=== PATIENT | male | born 1970 | race Caucasian/White ===

== ENCOUNTER 2018-11-09 21:42 | Inpatient (IN) | payer MEDICAID, OTHER ==
[~2018-11-09] VITALS: Ht 177.8 cm; Wt 99.7 kg
[~2018-11-09 21:42] MED LIST: BEN50 PO; CLOT30CR24 TOP; PRED20TA PO
[2018-11-09 22:16] VITALS: Ht 177.8 cm; Wt 99.7 kg
[2018-11-09] MEDS ORDERED: PANTOPRAZOLE IV 80 MG in SOD CHLORIDE 0.9% 100 ML IVPB STA (22:32)
[2018-11-09] MEDS ORDERED: PANTOPRAZOLE IV 80 MG in SOD CHLORIDE 0.9% 100 ML IV STA (22:32)
[2018-11-09] MEDS ORDERED: HYDR-3980 PO (22:57)
[2018-11-09] MEDS ORDERED: OMEP40CA6 PO (22:58)
[2018-11-09] MEDS ORDERED: NAPR-688 PO (22:58)
--- NOTE | 2018-11-09 23:28 | ERD ---
ER Documentation Chief Complaint Chief Complaint C/O LT SIDED CP RADIATING TO BACK X1 HR, STATES VOMITING BLOOD X1 HPI 47-year-old male history of heroin abuse, peptic ulcer disease who presents to the emergency room with epigastric abdominal pain and gross hematemesis over the past 12 hours. The patient describes 1-2 episodes of gross hematemesis with clots. He describes some possible darker stool but no nasim melena. He denies any fevers chills chest pain or shortness of breath. He does note some burning discomfort from the epigastrium into his chest however. ROS All systems reviewed and are negative except as per history of present illness. Medications Home Meds Reported Medications Naproxen* (Naproxen*) 500 Mg Tablet, 500 MG PO BID, TAB 11/09/18 Omeprazole* (Omeprazole*) 40 Mg Capsule.dr, 40 MG PO DAILY, #30 CAP 11/09/18 Hydrocodone/Acetaminophen ([place] 10-325 Tablet) 1 Each Tablet, 1 EACH PO NEEDED, TAB 11/09/18 Discontinued Scripts Diphenhydramine Hcl* (Benadryl*) 50 Mg Cap, 50 MG PO Q6H PRN for ITCHING/RASH, #30 CAP Prov:AURA HIGGINBOTHAM PA-C 03/18/16 Prednisone* (Prednisone*) 20 Mg Tab, 40 MG PO DAILY for 4 Days, TAB Prov:AURA HIGGINBOTHAM PA-C 03/18/16 Clotrimazole* (Clotrimazole* AF) 1% - 30 Gm Cream.gm., 1 APPLIC TOP BID for 7 Days, TUB Prov:AURA HIGGINBOTHAM PA-C 03/18/16 Allergies Allergies: Coded Allergies: No Known Allergy (Unverified , 11/09/18) PMhx/Soc Medical and Surgical Hx: pt denies Surgical Hx History of Surgery: No Anesthesia Reaction: No Hx Neurological Disorder: No Hx Respiratory Disorders: No Hx Cardiac Disorders: No Hx Psychiatric Problems: No Hx Miscellaneous Medical Probl: Yes (ULCER) Hx Alcohol Use: No Hx Substance Use: Yes (METH AND HEROIN) Hx Tobacco Use: Yes Smoking Status: Current every day smoker FmHx Family History: No diabetes Physical Exam Vitals Vital Signs Date Temp Pulse Resp B/P (MAP) Pulse Ox O2 O2 Flow FiO2 Time Delivery Rate 11/09/18 62 16 131/84 98 Room Air 23:32 (100) 11/09/18 97.7 81 18 141/77 98 22:16 (98) Physical Exam General: Well developed, well nourished, no acute distress Head: Normocephalic, atraumatic. Eyes: Pupils equally reactive, EOM intact ENT: Moist mucous membranes Neck: Supple, no lymphadenopathy Respiratory: Lungs clear bilaterally, no distress Cardiovascular: RRR, no murmurs, rubs, or gallops Abdominal: Soft, non-tender, non-distended, no peritoneal signs : Deferred MSK: No edema, no unilateral swelling, 5/5 strength Neurologic: Alert and oriented, moving all extremities, normal speech, no focal weakness, no cerebellar signs Skin: No rash Psych: Normal mood Result Diagram: 11/09/18224111/09/182241 Results 24 hrs Laboratory Tests Test 11/09/18 22:42 White Blood Count 12.0 10^3/ul Red Blood Count 5.16 10^6/ul Hemoglobin 13.6 g/dl Hematocrit 42.4 % Mean Corpuscular Volume 82.2 fl Mean Corpuscular Hemoglobin 26.4 pg Mean Corpuscular Hemoglobin Concent 32.1 g/dl Red Cell Distribution Width 13.3 % Platelet Count 357 10^3/UL Mean Platelet Volume 9.3 fl Immature Granulocytes % 0.600 % Neutrophils % 62.5 % Lymphocytes % 26.0 % Monocytes % 8.3 % Eosinophils % 2.2 % Basophils % 0.4 % Nucleated Red Blood Cells % 0.0 /100WBC Immature Granulocytes # 0.070 10^3/ul Neutrophils # 7.5 10^3/ul Lymphocytes # 3.1 10^3/ul Monocytes # 1.0 10^3/ul Eosinophils # 0.3 10^3/ul Basophils # 0.1 10^3/ul Nucleated Red Blood Cells # 0.0 10^3/ul Prothrombin Time 11.2 Sec Prothrombin Time Ratio 0.9 INR International Normalized Ratio 0.80 Activated Partial Thromboplast Time 30.9 Sec Sodium Level 140 mmol/L Potassium Level 4.0 mmol/L Chloride Level 96 mmol/L Carbon Dioxide Level 32 mmol/L Anion Gap 12 Blood Urea Nitrogen 20 mg/dl Creatinine 1.11 mg/dl Est Glomerular Filtrat Rate mL/min > 60 mL/min Glucose Level 102 mg/dl Calcium Level 9.5 mg/dl Total Bilirubin 0.1 mg/dl Direct Bilirubin 0.00 mg/dl Indirect Bilirubin 0.1 mg/dl Aspartate Amino Transf (AST/SGOT) 40 IU/L Alanine Aminotransferase (ALT/SGPT) 22 IU/L Alkaline Phosphatase 101 IU/L Troponin I < 0.012 ng/ml Total Protein 7.9 g/dl Albumin 4.4 g/dl Globulin 3.50 g/dl Albumin/Globulin Ratio 1.25 Current Medications Medications Dose Sig/Carmen Start Time Status Last (Trade) Ordered Route PRN Stop Time Admin Dose Reason Admin Pantoprazole 100 ml @ ONCE STAT 11/09/18 DC 11/09/18 80 mg/Sodium 400 mls/hr IVPB 22:32 23:27 Chloride 11/09/18 22:46 Pantoprazole 100 ml @ ONCE STAT 11/09/18 11/09/18 80 mg/Sodium 10 mls/hr IV 22:32 23:47 Chloride 11/10/18 08:31 Ondansetron 4 mg BRIDGE ORDER 11/10/18 HCl (Zofran PRN IV 01:00 Inj) NAUSEA/VOMITI 11/11/18 00:59 NG 650 mg ER BRIDGE 11/10/18 Acetaminophen PRN PO 01:00 (Tylenol .MILD PAIN 11/11/18 00:59 Tab) 1-3 OR TEMP Procedures/MDM EKG, MONITORS, & DIAGNOSTIC IMAGING: EKG: I reviewed and interpreted a 12-lead EKG. Rhythm: Normal sinus rhythm ST Changes: No contiguous ST segment elevations T waves: No contiguous T wave inversions Impression: No evidence of acute cardiac ischemia Chest x-ray: I reviewed and interpreted a 1 view of the chest Mediastinum: No enlargement Cardiac silhouette: No cardiomegaly Airspace: Clear lung giang bilaterally without evidence of pneumothorax Bones: No evidence of fracture LAB INTERPRETATION: I reviewed the laboratory testing and it shows no significant anemia MEDICAL DECISION MAKING: The patient has a known history of peptic ulcer disease with 2 episodes of gross hematemesis raising the concern for active upper GI hemorrhage. The patient has hemodynamic stability. I do not believe that emergent endoscopy is necessary but inpatient hospitalization for GI consultation and semi-urgent endoscopy would be appropriate. Patient is also requesting stool ova and parasite evaluation given that he states a history of parasitic infection. He denies any fevers or chills. He does describe some looser stools. These test have been ordered. No indication for empiric therapy. ER COURSE: * Large bore peripheral IV was inserted. The patient was given Protonix bolus and drip given known peptic ulcer disease. * No history of cirrhosis or alcohol abuse. * No indication for transfusion at this time CONSULTATION: None DISPOSITION PLAN: Inpatient hospital station for GI consultation in the setting of acute upper GI hemorrhage Accepting care team and consultations: I discussed the current laboratory data, diagnostic imaging and emergency care provided. Admitting team: Dr. Proctor Admitting team indication: Insurance directed Departure Diagnosis: Primary Impression: Upper GI bleed Condition: Stable MCKINLEY CASTILLO MD Nov 09, 2018 23:28
[2018-11-10] VITALS (10 sets, daily range): BP systolic 112–126; BP diastolic 61–71; PULSE 6–84; RESP 16–22
[2018-11-10] MEDS: SOD CHLORIDE 0.9% 1,000 ML IV SCH ×2 (00:57→13:27)
[2018-11-10] MEDS ORDERED: DOCUSATE SODIUM 100 MG CAP PO PRN (01:00)
[2018-11-10] MEDS ORDERED: ACETAMINOPHEN 325 MG TAB PO PRN ×2 (01:00)
[2018-11-10] MEDS ORDERED: ONDANSETRON 4 MG INJ IV PRN ×3 (01:00→13:30)
[2018-11-10] MEDS ORDERED: BISACODYL (EC) 5 MG TAB PO PRN (01:00)
[2018-11-10] MEDS ORDERED: morphine 2 MG INJ IV PRN (01:00)
[2018-11-10] MEDS ORDERED: NACL 0.9% 3 ML SYG IV SCH (01:00)
--- NOTE | 2018-11-10 06:44 | HP ---
Date/Time of Note Date/Time of Note DATE: 11/10/18 TIME: 06:39 Assessment/Plan VTE Prophylaxis SCD applied (from Nsg): Yes Pharmacological prophylaxis: NA/contraindicated Pharm contraindication: low risk/ambulating Lines/Catheters IV Catheter Type (from Nrsg): Saline Lock Assessment/Plan Hospital Course This is a 47-year-old male being admitted to the [facility] floor for: #1 hematemesis: Secondary possibly to underlying peptic ulcer disease. Hemoglobin is stable. Continue the patient on Protonix drip. CBC every 6 hours[address] Will consult GI Dr. Chino. #2 peptic ulcer disease: Patient has a history of peptic ulcer disease this could be the reason for his hematemesis. Again we will keep the patient on Protonix drip, consult GI check serial CBCs #3 history of illicit drug use: Monitor for signs of withdrawal as patient states he is self detox and ran off of heroin. #4 obesity: We will check hemoglobin A 1C, lipid panel, TSH #5 tobacco use: Nicotine patch #6 DVT GI prophylaxis: SCDs, Protonix drip Further treatment strategy will be implemented as per the clinical course. Result Diagram: 11/10/18 0451 11/10/18 0451 Results 24hrs Laboratory Tests Test 11/09/18 22:42 11/10/18 04:51 White Blood Count 12.0 #H 10.1 Red Blood Count 5.16 4.99 Hemoglobin 13.6 L 13.2 L Hematocrit 42.4 40.4 L Mean Corpuscular Volume 82.2 81.0 L Mean Corpuscular Hemoglobin 26.4 L 26.5 L Mean Corpuscular Hemoglobin Concent 32.1 32.7 Red Cell Distribution Width 13.3 13.6 Platelet Count 357 328 Mean Platelet Volume 9.3 9.5 Immature Granulocytes % 0.600 H 0.200 Neutrophils % 62.5 56.2 Lymphocytes % 26.0 31.7 Monocytes % 8.3 8.5 Eosinophils % 2.2 3.0 Basophils % 0.4 0.4 Nucleated Red Blood Cells % 0.0 0.0 Immature Granulocytes # 0.070 H 0.020 Neutrophils # 7.5 5.7 Lymphocytes # 3.1 H 3.2 H Monocytes # 1.0 H 0.9 Eosinophils # 0.3 0.3 Basophils # 0.1 0.0 Nucleated Red Blood Cells # 0.0 0.0 Prothrombin Time 11.2 L Prothrombin Time Ratio 0.9 INR International Normalized Ratio 0.80 Activated Partial Thromboplast Time 30.9 Sodium Level 140 141 Potassium Level 4.0 3.9 Chloride Level 96 L 101 Carbon Dioxide Level 32 H 30 Anion Gap 12 10 Blood Urea Nitrogen 20 17 Creatinine 1.11 0.97 Est Glomerular Filtrat Rate mL/min > 60 > 60 Glucose Level 102 101 Calcium Level 9.5 9.0 Total Bilirubin 0.1 L 0.3 Direct Bilirubin 0.00 0.00 Indirect Bilirubin 0.1 0.3 Aspartate Amino Transf (AST/SGOT) 40 29 Alanine Aminotransferase (ALT/SGPT) 22 25 Alkaline Phosphatase 101 84 Troponin I < 0.012 Total Protein 7.9 6.9 # Albumin 4.4 3.8 Globulin 3.50 H 3.10 Albumin/Globulin Ratio 1.25 1.22 Hemoglobin A1c 5.6 Magnesium Level 2.0 Triglycerides Level 153 H Cholesterol Level 137 LDL Cholesterol, Calculated 71 HDL Cholesterol 35 Cholesterol/HDL Ratio 3.9 Thyroid Stimulating Hormone (TSH) 2.200 HPI/ROS Admit Date/Time Admit Date/Time Hx of Present Illness Chief complaint: Hematemesis This is a 47-year-old male history of heroin abuse, peptic ulcer disease who presents to the emergency room with epigastric abdominal pain and gross hematemesis over the past 12 hours. The patient describes 1-2 episodes of gross hematemesis with clots. He describes some possible darker stool but no nasim melena. He denies any fevers chills chest pain or shortness of breath. He does note some burning discomfort from the epigastrium into his chest however. Patient reports that he is a heroin user and that he is currently on self detox for the last 3 days. Allergies: NKDA Medications: See Oct Const: As per HPI Eyes : No pain discharge or redness or change in visual acuity ENT: No pain, sore throat, congestion, congestion, dysphagia or discharge Respiratory: No shortness of breath, cough, sputum, wheezing, or pleuritic pain Cardiovascular: No chest pain, palpitation, PND, or edema GI : As per HPI Genitourinary: No dysuria, hematuria, flank pain , discharge or CVA tenderness Musculoskeletal: No joint pain, back pain, neck pain, restricted range of motion in neck or joints Skin: No rash, bruising or hives Neuro: No headache, dizziness, syncope, seizure, focal weakness Endocrine: No polyuria, polydipsia, temperature intolerance Psych: No hallucination, depression, anxiety or suicidal ideation PMH/Family/Social Past Medical History Peptic ulcer disease Medications Current Medications Pantoprazole 80 mg/Sodium Chloride 100 ml @ 10 mls/hr ONCE STAT IV Last administered on 11/09/18at 23:47; Admin Dose 10 MLS/HR; Start 11/09/18 at 22:32; Stop 11/10/18 at 08:31 Ondansetron HCl (Zofran Inj) 4 mg BRIDGE ORDER PRN IV NAUSEA/VOMITING; Start 11/10/18 at 01:00; Stop 11/11/18 at 00:59 Acetaminophen (Tylenol Tab) 650 mg ER BRIDGE PRN PO .MILD PAIN 1-3 OR TEMP; Start 11/10/18 at 01:00; Stop 11/11/18 at 00:59 Sodium Chloride 1,000 ml @ 80 mls/hr [id number] IV Last administered on 11/10/18at 00:57; Admin Dose 80 MLS/HR; Start 11/10/18 at 00:57 IV Flush (NS 3 ml) 3 ml PER PROTOCOL IV ; Start 11/10/18 at 01:00 Ondansetron HCl (Zofran Inj) 4 mg Q6H PRN IV NAUSEA/VOMITING; Start 11/10/18 at 01:00 Acetaminophen (Tylenol Tab) 650 mg Q6H PRN PO .PAIN 1-3 OR TEMP; Start 11/10/18 at 01:00 Morphine Sulfate (morphine) 2 mg Q4H PRN IV .SEVERE PAIN 7-10; Start 11/10/18 at 01:00 Docusate Sodium (Colace) 100 mg Q12H PRN PO .CONSTIPATION; Start 11/10/18 at 01:00 Bisacodyl (Dulcolax) 5 mg DAILY PRN PO .CONSTIPATION; Start 11/10/18 at 01:00 Pantoprazole 80 mg/Sodium Chloride 100 ml @ 10 mls/hr Q10H IV ; Start 11/10/18 at 08:32 Coded Allergies: No Known Allergy (Unverified , 11/09/18) Past Surgical History Past Surgical Hx: no surgical history Family History Significant Family History: no pertinent family hx Social History Smoking Status: Current every day smoker Drug Use: other (Heroin use) Exam/Review of Systems Vital Signs Vitals Vital Signs Date Temp Pulse Resp B/P (MAP) Pulse Ox O2 O2 Flow FiO2 Time Delivery Rate 11/10/18 56 16 125/72 99 Room Air 06:30 (89) 11/09/18 97.7 22:16 Exam Exam General: Pleasant male currently lying in bed in no acute distress HEENT: Atraumatic, normocephalic. The pupils are equal, round and reactive. Ext raocular motor are intact Neck: Supple with full range of motion. No rigidity or meningismus Chest: Nontender Lungs: Clear to auscultation bilaterally no crackles rales or wheezing Heart: Normal S1-S2, Regular rhythm and rate. No murmur, S3, or S4 Abdomen: Soft , nontender, nondistended , bowel sounds are present. No guarding no rebound tenderness , No masses or organomegaly. No costovertebral temporal angle mass Extremities: Normal to inspection, no edema no cyanosis Skin: Multiple tattoos Neurologic: Normal mental status, speech normal, cranial nerves II through XII are intact, motor and sensory are intact, SHIMA DICKINSON Nov 10, 2018 06:44
[2018-11-10] MEDS ORDERED: NICOTINE (21 MG/24 HR) PATCH TRANSDERM ONE (07:00)
[2018-11-10] MEDS ORDERED: PANTOPRAZOLE IV 80 MG in SOD CHLORIDE 0.9% 100 ML IV SCH (08:32)
--- NOTE | 2018-11-10 13:08 | PREAC ---
Date/Time of Note Date/Time of Note DATE: 11/10/18 TIME: 13:06 Anesthesia Eval and Record Evaluation Time Pre-Procedure Interview DATE: 11/10/18 TIME: 13:06 Age 47 Sex male NPO: 8 hrs Preoperative diagnosis upper GI bleeding Planned procedure EGD Past Medical History Past Medical History: Includes Pulm: Smoking Hx, Other (on PATCH) GI: Other (peptic ulcer) Recreational drugs: Heroin Surgery & Anesthesia Issues No known issue Meds Anticoagulation: No Beta Lawrence within 24 hr: No Reason Beta Lawrence not given: Pt. not on B-Lawrence Reported Medications Naproxen* (Naproxen*) 500 Mg Tablet, 500 MG PO BID, TAB 11/09/18 Omeprazole* (Omeprazole*) 40 Mg Capsule.dr, 40 MG PO DAILY, #30 CAP 11/09/18 Hydrocodone/Acetaminophen ([place] 10-325 Tablet) 1 Each Tablet, 1 EACH PO NEEDED, TAB 11/09/18 Discontinued Scripts Diphenhydramine Hcl* (Benadryl*) 50 Mg Cap, 50 MG PO Q6H PRN for ITCHING/RASH, #30 CAP Prov:AURA HIGGINBOTHAM PA-C 03/18/16 Prednisone* (Prednisone*) 20 Mg Tab, 40 MG PO DAILY for 4 Days, TAB Prov:AURA HIGGINBOTHAM PA-C 03/18/16 Clotrimazole* (Clotrimazole* AF) 1% - 30 Gm Cream.gm., 1 APPLIC TOP BID for 7 Days, TUB Prov:AURA HIGGINBOTHAM PA-C 03/18/16 Current Medications Sodium Chloride 1,000 ml @ 80 mls/hr [id number] IV Last administered on 11/10/18at 00:57; Admin Dose 80 MLS/HR; Start 11/10/18 at 00:57 IV Flush (NS 3 ml) 3 ml PER PROTOCOL IV ; Start 11/10/18 at 01:00 Ondansetron HCl (Zofran Inj) 4 mg Q6H PRN IV NAUSEA/VOMITING; Start 11/10/18 at 01:00 Acetaminophen (Tylenol Tab) 650 mg Q6H PRN PO .PAIN 1-3 OR TEMP; Start 11/10/18 at 01:00 Morphine Sulfate (morphine) 2 mg Q4H PRN IV .SEVERE PAIN 7-10 Last administered on 11/10/18at 09:09; Admin Dose 2 MG; Start 11/10/18 at 01:00 Docusate Sodium (Colace) 100 mg Q12H PRN PO .CONSTIPATION; Start 11/10/18 at 01:00 Bisacodyl (Dulcolax) 5 mg DAILY PRN PO .CONSTIPATION; Start 11/10/18 at 01:00 Pantoprazole 80 mg/Sodium Chloride 100 ml @ 10 mls/hr Q10H IV ; Start 11/10/18 at 08:32 Meds reviewed: Yes Allergies Coded Allergies: No Known Allergy (Unverified , 11/09/18) Allergies Reviewed: Yes Labs/Studies Labs Reviewed: Reviewed by anesthesiologist Result Diagram: 11/10/18 0451 11/10/18 0451 Laboratory Tests 11/10/18 04:51 Blood Bank Test 11/09/18 22:42 Antibody Screen NEGATIVE Blood Type O POSITIVE test: N/A Studies: ECG (sr), CXR (n/a) Pre-procedure Exam Last vitals Vital Signs Date Temp Pulse Resp B/P (MAP) Pulse Ox O2 O2 Flow FiO2 Time Delivery Rate 11/10/18 97.3 84 16 126/71 99 Room Air 12:28 (89) Airway: Adequate mouth opening Mallampati: Mallampati I Teeth: Normal Lung: Normal Heart: Normal ASA Physical Status ASA physical status: 2 Emergency: None Planned Anesthetic General/MAC: MAC Planned Pain Management Parenteral pain med Pre-operative Attestations Prior to commencing anesthesia and surgery, the patient was re-evaluated, there was verification of: *The patient's identity *The results of appropriate recent lab work and preoperative vital signs *The above evaluation not changing prior to induction *Anesthetic plan, risk benefits, alternative and complications discussed with patient/family; questions answered; patient/family understands, accepts and wishes to proceed. KIMBERLY TORIBIO MD Nov 10, 2018 13:08
[2018-11-10] MEDS ORDERED: PROPOFOL 20 ML ONE (13:09)
[2018-11-10] MEDS ORDERED: FENTAnyl 50 MCG/ML VIAL ONE (13:09)
--- NOTE | 2018-11-10 14:17 | CONS ---
DATE OF ADMISSION: 11/10/2018 DATE OF CONSULTATION: 11/10/2018 TYPE OF CONSULTATION: Gastroenterology. Dear Dr. Dickinson: Thank you for asking me to see Mr. Philippe in GI consultation. HISTORY OF PRESENT ILLNESS: The patient, as you know, is a 47-year-old male. He is admitte d to the hospital because of history of vomiting blood last night. He says he had initial vomiting w hich did not contain any blood. He had some diarrhea as well. Subsequently, vomited a large amount of blood. Since this morning he has no history of bleeding or vomiting. He has history of chronic h eartburn. He has history of peptic ulcer disease. He had a similar GI bleeding in the past. He als o gives a history of drug abuse in the past. We discussed obesity. He does not smoke. He has a nicotine patch at this time. PAST MEDICAL HISTORY: He had back surgery. SOCIAL HISTORY: He says he drinks alcohol once in a week or so, but he uses IV drugs. MEDICATIONS: In the hospital include: 1. Pantoprazole. 2. Zofran. 3. Tylenol. 4. Morphine. 5. Colace. 6. Dulcolax. PHYSICAL EXAMINATION: GENERAL: The patient is a 47-year-old gentleman who is obese, has got tattoos all over the skin. CARDIOVASCULAR: Heart sounds well heard. RESPIRATORY: Normal breath sounds. ABDOMEN: Showed unremarkable findings. LABORATORY WORKUP: Shows hemoglobin 13.2, WBC is 10,100, platelets 328,000. Potassium 3.9, AST 40, ALT 22, alkaline phosphatase of 101. CLINICAL IMPRESSION: The patient is presenting with history of hematemesis, rule out Paola-Martinez t ear, history suggestive of gastroenteritis, has a previous history of peptic ulcer disease. He does not drink alcohol excessively. He is obese and is status post back surgery, history of drug abuse. PLAN: Recommend upper endoscopy. Continue Protonix. Once again, doctor, thank you for this consultation. Dictated By: NATASHA DA SILVA/NTS Conf#: [id number] DID#: [id number] CC: SHIMA DICKINSON MD;*EndCC*
[2018-11-10] MEDS ORDERED: PANT40TA3 PO (14:34)
--- NOTE | 2018-11-10 14:36 | PDOCDIS ---
Discharge Instructions CONDITION [id number] Patient Condition: [id number] Stable HOME CARE INSTRUCTIONS: [id number] Diet Instructions: [id number] Regular FOLLOW UP/APPOINTMENTS Follow-up Plan Follow-up with your primary care physician in 2 weeks. OTHER ORDERS: Other Orders: 1. Take a regular diet. 2. Start taking Protonix twice daily. 3. Avoid consuming alcohol. 4. Resume activities as tolerated. 5. Follow-up with your primary care physician in 2 weeks. 6. Please go to the nearest emergency room if you have vomiting blood, dark tarry stools, or blood in stool. IDRIS BUSCH NP Nov 10, 2018 14:36
--- NOTE | 2018-11-10 15:54 | DS ---
Date/Time of Note Date/Time of Note DATE: 11/10/18 TIME: 15:54 Discharge Summary Admission/Discharge Info Admit Date/Time Nov 10, 2018 at 00:55 Discharge Date/Time Nov 10, 2018 at 15:20 Discharge Diagnosis 1. Hematemesis. 2. Ulcer of the esophagus without bleeding. 3. Obesity. BMI 31.5 kg/m. 4. Substance abuse. Patient Condition: Stable Consults 1. Eric Chino MD, Gastroenterology. Procedures Esophagogastroduodenoscopy on 11/10/2018 Impression: Ulcer of the esophagus without bleeding. Hx of Present Illness This is a 47-year-old male with past medical history of heroin abuse, peptic ulcer disease, and obesity who came to the emergency room with epigastric abdominal pain and gross hematemesis. The patient denied any melena or hematochezia. The patient denied any chest pain or dyspnea. The patient had a hemoglobin hematocrit of 13.6 and 42.4 respectively. The patient was admitted to inpatient setting for further treatment and evaluation. Hospital Course The patient was admitted to inpatient setting. The patient underwent an esophagogastroduodenoscopy on 11/10/2018 that showed an esophageal ulcer. Gastroenterology recommended proton pump inhibitor therapy. The patient's H&H remained stable. The patient was cleared by gastroenterology to be discharged home. The patient is obese with a BMI of 31.5 kg/m. The patient was advised on weight reduction. The patient is also a current substance abuser. The patient was advised to abstain from using recreational drugs and alcohol. Discharge Instructions 1. Take a regular diet. 2. Start taking Protonix twice daily. 3. Avoid consuming alcohol. 4. Resume activities as tolerated. 5. Follow-up with your primary care physician in 2 weeks. 6. Please go to the nearest emergency room if you have vomiting blood, dark tarry stools, or blood in stool. The patient verbalized understanding of his discharge instructions. At this time I would like to thank Dr. Chino for seeing the patient, doing the necessary procedures, and providing clinical recommendations. The patient was seen in collaboration with Dr. Escalona. Home Meds Active Scripts Pantoprazole* (Protonix*) 40 Mg Tablet., 40 MG PO BID, #60 TAB Prov:IDRIS BUSCH NP 11/10/18 Discontinued Reported Medications Naproxen* (Naproxen*) 500 Mg Tablet, 500 MG PO BID, TAB 11/09/18 Omeprazole* (Omeprazole*) 40 Mg Capsule.dr, 40 MG PO DAILY, #30 CAP 11/09/18 Hydrocodone/Acetaminophen ([place] 10-325 Tablet) 1 Each Tablet, 1 EACH PO NEED ED, TAB 11/09/18 Discontinued Scripts Diphenhydramine Hcl* (Benadryl*) 50 Mg Cap, 50 MG PO Q6H PRN for ITCHING/RASH, #30 CAP Prov:AURA HIGGINBOTHAM PA-C 03/18/16 Prednisone* (Prednisone*) 20 Mg Tab, 40 MG PO DAILY for 4 Days, TAB Prov:AURA HIGGINBOTHAM PA-C 03/18/16 Clotrimazole* (Clotrimazole* AF) 1% - 30 Gm Cream.gm., 1 APPLIC TOP BID for 7 Days, TUB Prov:AURA HIGGINBOTHAM PA-C 03/18/16 Follow-up Plan Follow-up with your primary care physician in 2 weeks. Primary Care Provider Care Physician No Primary Time spent on discharge: > 30 minutes Pending Labs Laboratory Tests Test 11/09/18 22:42 11/10/18 04:51 White Blood Count 12.0 10^3/ul (4.8-10.8) 10.1 10^3/ul (4.8-10.8) Red Blood Count 5.16 10^6/ul (4.70-6.10) 4.99 10^6/ul (4.70-6.10) Hemoglobin 13.6 g/dl (14.0-18.0) 13.2 g/dl (14.0-18.0) Hematocrit 42.4 % (42.0-52.0) 40.4 % (42.0-52.0) Mean Corpuscular Volume 82.2 fl (82.0-101.0) 81.0 fl (82.0-101.0) Mean Corpuscular 26.4 pg (29.0-33.0) 26.5 pg (29.0-33.0) Hemoglobin Mean Corpuscular 32.1 g/dl (32.0-37.0) 32.7 g/dl (32.0-37.0) Hemoglobin Concent Red Cell Distribution 13.3 % (11.5-14.5) 13.6 % (11.5-14.5) Width Platelet Count 357 10^3/UL (140-415) 328 10^3/UL (140-415) Mean Platelet Volume 9.3 fl (7.4-10.4) 9.5 fl (7.4-10.4) Immature Granulocytes % 0.600 % (0.001-0.429) 0.200 % (0.001-0.429) Neutrophils % 62.5 % (39.0-77.0) 56.2 % (39.0-77.0) Lymphocytes % 26.0 % (15.0-51.0) 31.7 % (15.0-51.0) Monocytes % 8.3 % (0.0-11.0) 8.5 % (0.0-11.0) Eosinophils % 2.2 % (0.0-7.0) 3.0 % (0.0-7.0) Basophils % 0.4 % (0.0-2.0) 0.4 % (0.0-2.0) Nucleated Red Blood Cells 0.0 /100WBC (0.0-0.0) 0.0 /100WBC (0.0-0.0) % Immature Granulocytes # 0.070 10^3/ul (0.0-0.031) 0.020 10^3/ul (0.0-0.031) Neutrophils # 7.5 10^3/ul (1.6-7.5) 5.7 10^3/ul (1.6-7.5) Lymphocytes # 3.1 10^3/ul (0.8-2.9) 3.2 10^3/ul (0.8-2.9) Monocytes # 1.0 10^3/ul (0.3-0.9) 0.9 10^3/ul (0.3-0.9) Eosinophils # 0.3 10^3/ul (0.0-0.5) 0.3 10^3/ul (0.0-0.5) Basophils # 0.1 10^3/ul (0.0-0.1) 0.0 10^3/ul (0.0-0.1) Nucleated Red Blood Cells 0.0 10^3/ul (0.0-0.0) 0.0 10^3/ul (0.0-0.0) # Prothrombin Time 11.2 Sec (11.9-14.9) Prothrombin Time Ratio 0.9 INR International 0.80 Normalized Ratio Activated 30.9 Sec (23.0-35.0) Partial Thromboplast Time Sodium Level 140 mmol/L (135-144) 141 mmol/L (135-144) Potassium Level 4.0 mmol/L (3.5-5.1) 3.9 mmol/L (3.5-5.1) Chloride Level 96 mmol/L (97-110) 101 mmol/L (97-110) Carbon Dioxide Level 32 mmol/L (21-31) 30 mmol/L (21-31) Anion Gap 12 (5-13) 10 (5-13) Blood Urea Nitrogen 20 mg/dl (7-20) 17 mg/dl (7-20) Creatinine 1.11 mg/dl (0.61-1.24) 0.97 mg/dl (0.61-1.24) Est Glomerular Filtrat > 60 mL/min (>60) > 60 mL/min (>60) Rate mL/min Glucose Level 102 mg/dl (70-220) 101 mg/dl (70-220) Calcium Level 9.5 mg/dl (8.4-10.2) 9.0 mg/dl (8.4-10.2) Total Bilirubin 0.1 mg/dl (0.2-1.3) 0.3 mg/dl (0.2-1.3) Direct Bilirubin 0.00 mg/dl (0.00-0.20) 0.00 mg/dl (0.00-0.20) Indirect Bilirubin 0.1 mg/dl (0-1.1) 0.3 mg/dl (0-1.1) Aspartate Amino 40 IU/L (15-46) 29 IU/L (15-46) Transf (AST/SGOT) Alanine 22 IU/L (13-69) 25 IU/L (13-69) Aminotransferase (ALT/SGPT ) Alkaline Phosphatase 101 IU/L (42-121) 84 IU/L (42-121) Troponin I < 0.012 ng/ml (0.000-0.120) Total Protein 7.9 g/dl (6.1-8.1) 6.9 g/dl (6.1-8.1) Albumin 4.4 g/dl (3.3-4.9) 3.8 g/dl (3.3-4.9) Globulin 3.50 g/dl (1.3-3.2) 3.10 g/dl (1.3-3.2) Albumin/Globulin Ratio 1.25 1.22 Hemoglobin A1c 5.6 % (0-5.9) Magnesium Level 2.0 mg/dl (1.7-2.5) Triglycerides Level 153 mg/dl (0-149) Cholesterol Level 137 mg/dl (100-200) LDL Cholesterol, 71 mg/dl Calculated HDL Cholesterol 35 mg/dl (27-67) Cholesterol/HDL Ratio 3.9 RATIO Thyroid Stimulating 2.200 MIU/L (0.465-4.680) Hormone (TSH) IDRIS BUSCH NP Nov 10, 2018 15:54
--- NOTE | 2018-11-10 17:35 | PAC ---
Date/Time of Note Date/Time of Note DATE: 11/10/18 TIME: 17:35 Post-Anesthesia Notes Post-Anesthesia Note Last documented vital signs Vital Signs Date Temp Pulse Resp B/P (MAP) Pulse Ox O2 O2 Flow FiO2 Time Delivery Rate 11/10/18 98.8 6 22 118/62 97 Room Air 13:56 (80) 11/10/18 98.9 13:28 Activity: WNL Respiratory function: WNL Cardiovascular function: WNL Mental status: Baseline Pain reasonably controlled: Yes Hydration appropriate: Yes Nausea/Vomiting absent: No KIMBERLY TORIBIO MD Nov 10, 2018 17:35
== END 2018-11-10 15:20 | disposition home or self-care (01) | DRG 378 ==
LOC: E/R 21:42 → 2NE 11-10 00:55
PROVIDERS: ADMIT Family Medicine; ATTEND Family Medicine
PROC: 0DB78ZX Excision of Stomach, Pylorus, Via Natural or Artificial Opening Endoscopic, Diagnostic (ICD-10-PCS; 2018-11-10)
PROC: 0DB68ZX Excision of Stomach, Via Natural or Artificial Opening Endoscopic, Diagnostic (ICD-10-PCS; principal; 2018-11-10 12:00)
DX: K92.0 Hematemesis (principal); K22.10 Ulcer of esophagus without bleeding; E66.9 Obesity, unspecified; Z68.31 Body mass index [BMI] 31.0-31.9, adult; Z71.3 Dietary counseling and surveillance; F11.10 Opioid abuse, uncomplicated; F15.10 Other stimulant abuse, uncomplicated
CPT/HCPCS: 36415; 71045; 80053; 80061; 83036; 83735; 84443; 84484; 85025; 85610; 85730; 86850; 86900; 86901; 88305; 88312; 93005; 96374; 96376; C9113; J2270; J3010; J7030

== ENCOUNTER 2019-03-14 16:13 | Emergency (ER) | payer MEDICAID, OTHER ==
[~2019-03-14] VITALS: Ht 170.2 cm; Wt 90.0 kg
[~2019-03-14 16:13] MED LIST changes: -BEN50 PO; -CLOT30CR24 TOP; +HYDR-3980 PO; +HYDR-4011 PO; +IBUP800T48 PO; +OMEP40CA6 PO; +PANT40TA3 PO; -PRED20TA PO
[2019-03-14 16:32] VITALS: Ht 170.2 cm; Wt 90.0 kg
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
[2019-03-14] MEDS ORDERED: morphine 4 MG/ML VIAL IV ONE (17:00)
[2019-03-14] MEDS ORDERED: ONDANSETRON 4 MG INJ IV ONE (17:00)
[2019-03-14] MEDS ORDERED: morphine 4 MG/ML VIAL IV STA (17:29)
[2019-03-14] MEDS ORDERED: morphine 10 MG INJ IV ONE (18:30)
[2019-03-14 19:05] VITALS: BP 117/70; PULSE 56; RESP 18
== END 2019-03-14 19:05 | disposition home or self-care (01) ==
LOC: E/R 16:13
DX: S42.002A Fracture of unspecified part of left clavicle, initial encounter for closed fracture (principal); R40.2142 Coma scale, eyes open, spontaneous, at arrival to emergency department; R40.2362 Coma scale, best motor response, obeys commands, at arrival to emergency department; R40.2252 Coma scale, best verbal response, oriented, at arrival to emergency department; R51 Headache; V03.10XA Pedestrian on foot injured in collision with car, pick-up truck or van in traffic accident, initial encounter; Z87.891 Personal history of nicotine dependence
CPT/HCPCS: 36415; 70450; 71045; 72125; 73000; 80048; 80307; 85025; 85610; 85730; 96374; 96375; 96376; J2270; J2405; Z7502

== ENCOUNTER 2019-03-30 08:46 | Emergency (ER) | payer OTHER ==
[~2019-03-30] VITALS: Ht 177.8 cm; Wt 91.2 kg
[~2019-03-30 08:46] MED LIST changes: -PANT40TA3 PO
[2019-03-30 08:55] VITALS: BP 139/85; PULSE 88; RESP 17; Ht 177.8 cm; Wt 91.2 kg
[2019-03-30] MEDS ORDERED: DEXAMETHASONE 10 MG/ML 1 ML INJ PO ONE (11:00)
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
== END 2019-03-30 12:25 | disposition home or self-care (01) ==
LOC: FTE 08:46
DX: S22.42XA Multiple fractures of ribs, left side, initial encounter for closed fracture (principal); F17.210 Nicotine dependence, cigarettes, uncomplicated; V09.09XA Pedestrian injured in nontraffic accident involving other motor vehicles, initial encounter
CPT/HCPCS: 71100; J1100; Z7502